=== PATIENT | female | born 1940 | race Caucasian/White ===

== ENCOUNTER 2020-10-08 08:19 | Emergency (ER) | payer MEDICARE, OTHER ==
[~2020-10-08 08:19] MED LIST: BENTYL10 MG PO; CATAPRES0.1 MG PO; HYOSCYAMINE0.375 MG PO; LOVAZA1 GM PO; NORVASC2.5 M1 PO; NORVASC5 MG PO; PEPCID AC20 MG PO; VITAMIN D-32000 UNI1 PO; ZOFRAN4 MG PO; otc vit
[2020-10-08 09:25] LABS: BASOPHIL 0.7 % (0-2); EOSINOPHIL 1.4 % (0-7); HCT 44.4 % (37.0-47.0); HGB 14.5 g/dl (12.5-16.0); LYMPHOCYTE 13.3 % (15-48); MCH 29.5 pg (25.0-31.0); MCHC 32.7 g/dL (32.0-36.0); MCV 90.2 fL (78.0-100.0); MONOCYTE 7.8 % (0-12); MPV 10.1 fL (6.0-9.5); NEUTROPHIL 76.3 % (41-80); NRBC 0; PLT 277 K/uL (150-400); RBC 4.92 M/uL (4.20-5.40); RDW 14.1 % (11.5-14.0); WBC 5.9 K/uL (4.0-10.5)
[2020-10-08 10:11] LABS: CORONAVIRUS 2019 SARS-COV-2 NEGATIVE (NEGATIVE); INFLUENZA A NAA NEGATIVE (NEGATIVE)
[2020-10-08 10:49] LABS: ALBUMIN 3.5 g/dL (3.4-5.0); BILIRUBIN - TOTAL 0.4 mg/dL (0.2-1.0); BUN/CREAT RATIO (CALC) 18.8 RATIO; CREATININE 0.85 mg/dL (0.51-0.95); GLOBULIN (CALCULATION) 3.4 g/dL; POTASSIUM 3.8 mmol/L (3.5-5.1); TOTAL PROTEIN 6.9 g/dL (6.4-8.2)
== END 2020-10-08 11:12 | disposition home or self-care (01) ==
LOC: FER 08:19
PROVIDERS: Internal Medicine
DX: J02.9 Acute pharyngitis, unspecified (principal); I16.0 Hypertensive urgency; R73.9 Hyperglycemia, unspecified; Z20.822 Contact with and (suspected) exposure to COVID-19; Z88.0 Allergy status to penicillin; Z88.8 Allergy status to other drugs, medicaments and biological substances; Z88.1 Allergy status to other antibiotic agents
CPT/HCPCS: 36415; 71046; 80053; 85025; 87880; J3490; U0002

== ENCOUNTER 2021-11-02 23:56 | Emergency (ER) | payer MEDICARE ==
[2021-11-03 01:16] LABS: BASOPHIL 0.6 % (0-2); EOSINOPHIL 1.2 % (0-7); HCT 43.9 % (37.0-47.0); HGB 14.3 g/dl (12.5-16.0); LYMPHOCYTE 10.8 % (15-48); MCH 29.1 pg (25.0-31.0); MCHC 32.6 g/dL (32.0-36.0); MCV 89.2 fL (78.0-100.0); MONOCYTE 6.5 % (0-12); MPV 9.7 fL (6.0-9.5); NEUTROPHIL 80.1 % (41-80); NRBC 0; PLT 269 K/uL (150-400); RBC 4.92 M/uL (4.20-5.40); RDW 14.3 % (11.5-14.0); WBC 8.3 K/uL (4.0-10.5)
[2021-11-03 01:44] LABS: BILIRUBIN - TOTAL 0.4 mg/dL (0.2-1.0); BUN/CREAT RATIO (CALC) 21.4 RATIO; CREATININE 0.84 mg/dL (0.51-0.95); GLOBULIN (CALCULATION) 3.7 g/dL; POTASSIUM 3.7 mmol/L (3.5-5.1); TOTAL PROTEIN 7.7 g/dL (6.4-8.2)
[2021-11-03 01:53] LABS: CORONAVIRUS 2019 SARS-COV-2 NEGATIVE (NEGATIVE); INFLUENZA A NAA NEGATIVE (NEGATIVE)
[2021-11-03 02:34] LABS: BILIRUBIN NEGATIVE (NEGATIVE); BLOOD NEGATIVE Ery/uL (NEGATIVE); CLARITY CLEAR (CLEAR); COLOR YELLOW (YELLOW); GLUCOSE (U) NORMAL (NORMAL); LEUKOCYTES NEGATIVE Leu/uL (NEGATIVE); NITRITE NEGATIVE (NEGATIVE); PROTEIN NEGATIVE (NEGATIVE); SPECIFIC GRAVITY 1.015 (1.001-1.030); UROBILINOGEN 0.2 mg/dL (0.2-1.0); pH 7.5 (5.0-9.0)
[2021-11-03] MEDS ORDERED: NORCO 5-325 TA1 EACH PO (03:21)
[2021-11-03] MEDS ORDERED: ONDANSETRON ODT4 MG PO (03:21)
== END 2021-11-03 04:04 | disposition home or self-care (01) ==
LOC: FER 23:56
PROVIDERS: Internal Medicine
DX: S42.292A Other displaced fracture of upper end of left humerus, initial encounter for closed fracture (principal); S43.015A Anterior dislocation of left humerus, initial encounter; R42 Dizziness and giddiness; I10 Essential (primary) hypertension; Z79.899 Other long term (current) drug therapy; Z20.822 Contact with and (suspected) exposure to COVID-19; W18.30XA Fall on same level, unspecified, initial encounter; Y92.009 Unspecified place in unspecified non-institutional (private) residence as the place of occurrence of the external cause
CPT/HCPCS: 36415; 70450; 72125; 73020; 73030; 73564; 80053; 81003; 84484; 85025; 93005; 96374; 96375; J1170; J2250; J2405; J3010; U0002